=== PATIENT | female | born 1980 | race Caucasian/White ===

== ENCOUNTER 2021-08-10 11:31 | Emergency (ER) | payer BC ==
[2021-08-10] MEDS ORDERED: Sodium Chloride 0.9% 10 ML Syringe FLUSH PRN (12:33)
[2021-08-10] MEDS ORDERED: Vancomycin 1.5 GM in Sodium Chloride 0.9% 500 ML IV ONE (12:39)
[2021-08-10] MEDS ORDERED: Cefepime 2 GM in Sodium Chloride 0.9% 50 ML IV ONE (12:41)
[2021-08-10] MEDS ORDERED: Ketorolac 30 MG/ML SDV IVPUSH SCH (12:45)
[2021-08-10] MEDS ORDERED: Vancomycin 1 GM, Vancomycin 500 MG in Sodium Chloride 0.9% 500 ML IV ONE (13:00)
== END 2021-08-10 15:57 | disposition home or self-care (01) ==
LOC: JD.ED 11:31
DX: L03.111 Cellulitis of right axilla (principal); L02.411 Cutaneous abscess of right axilla; E11.9 Type 2 diabetes mellitus without complications; Z79.84 Long term (current) use of oral hypoglycemic drugs
CPT/HCPCS: 36415; 80053; 85025; 96365; 96366; 96367; 99283; J0692; J1885; J3370; J7040